=== PATIENT | male | born 1990 | race Caucasian/White ===

== ENCOUNTER → 2018-10-03 16:04 | Emergency (ER) | payer OTHER ==
[~2018-10-03 16:04] MED LIST: Lidocaine PATCH 5%* 1 PATCH TRANSDERM ONE; Lidocaine Patch REMOVE* 1 NOTE MISC PATCH OFF SCH; Lidocaine Patch REMOVE* 1 NOTE MISC SCH
--- NOTE | 2018-10-03 17:15 | ED ---
Shortness of Breath - HPI Summary HPI Summary: 28-year-old male presents with right rib pain for the past couple day. He states he got elbowed in the rib on . He states it hurts to take a deep breath. He states it is difficult to find a comfortable position. He states taking ibuprofen for pain which has been helping. Denies any history of asthma or COPD. He is nonsmoker. He's never had this pain before. pain is on the lateral aspect of left ribs. He denies any bowel pain. No other injury. Has no medical conditions. - History of Current Complaint Chief Complaint: EDChestWallPain - Allergy/Home Medications Allergies/Adverse Reactions: Allergies Allergy/AdvReac Type Severity Reaction Status Date / Time No Known Allergies Allergy Verified 10/03/18 16:10 PMH/Surg Hx/FS Hx/Imm Hx Endocrine/Hematology History: Denies: Hx Anticoagulant Therapy Respiratory History: Denies: Hx Asthma Infectious Disease History: No Infectious Disease History: Denies: Traveled Outside the [place] in Last 30 Days - Family History Known Family History: Positive: Non-Contributory - Social History Substance Use Type: Reports: None Smoking Status (MU): Never Smoked Tobacco Review of Systems Negative: Fever Positive: Chest Pain Positive: Shortness Of Breath. Negative: Cough Negative: Abdominal Pain All Other Systems Reviewed And Are Negative: Yes Physical Exam Triage Information Reviewed: Yes Vital Signs On Initial Exam: Initial Vitals Temp Pulse Resp BP Pulse Ox 98.6 F 74 16 147/74 98 10/03/18 16:08 10/03/18 16:08 10/03/18 16:08 10/03/18 16:08 10/03/18 16:08 Vital Signs Reviewed: Yes Appearance: Positive: Well-Appearing Skin: Positive: Warm, Dry Head/Face: Positive: Normal Head/Face Inspection Eyes: Positive: Normal, Conjunctiva Clear ENT: Positive: Pharynx normal Respiratory/Lung Sounds: Positive: Clear to Auscultation, Breath Sounds Present , Other - tenderness over lateral ribs 7-10 Cardiovascular: Positive: Normal, RRR Musculoskeletal: Positive: Normal Neurological: Positive: Normal Psychiatric: Positive: Normal Diagnostics - Vital Signs Vital Signs Temp Pulse Resp BP Pulse Ox 10/03/18 16:08 98.6 F 74 16 147/74 98 - Laboratory Lab Statement: Any lab studies that have been ordered have been reviewed, and results considered in the medical decision making process. - Radiology rib Radiology Interpretation Completed By: Radiologist Summary of Radiographic Findings: IMPRESSION: Questionable minimally displaced fracture involving the lateral left seventh rib. Course/Dx - Course Course Of Treatment: 28-year-old male presents with right rib pain for the past couple day. He states he got elbowed in the rib on . He states it hurts to take a deep breath. He states it is difficult to find a comfortable position. He states taking ibuprofen for pain which has been helping. Denies any history of asthma or COPD. He is nonsmoker. He's never had this pain before. pain is on the lateral aspect of left ribs. He denies any bowel pain. No other injury. Has no medical conditions. On exam tenderness over ribs 8 through 10 on the left lateral side. lungs CTA. X-ray shows a possible fracture of 7th rib. Explained need to take deep breaths throughout the day. told if develop any signs of pneumonia to return to ED. Patient understands agrees plan. - Diagnoses Differential Diagnosis/HQI/PQRI: Positive: Pneumonia, Pneumothorax, Other - rib fracture Provider Diagnoses: Rib fracture Discharge - Sign-Out/Discharge Documenting (check all that apply): Patient Departure Patient Received Moderate/Deep Sedation with Procedure: No - Discharge Plan Condition: Good Disposition: HOME Patient Education Materials: Rib Fracture (ED) Referrals: No Primary Care Phys,NOPCP [Primary Care Provider] - Additional Instructions: Take deep breath throughout the day Take Ibuprofen or Tylenol for pain every 6 hours Return to ED if develop new productive cough, fever, or any new or worsening symptoms - Billing Disposition and Condition Condition: GOOD Disposition: Home
[2018-10-03 20:28] VITALS: BP 139/71
== END | disposition home or self-care (01) ==
LOC: ED 16:04
DX: S29.9XXA Unspecified injury of thorax, initial encounter (principal); W50.0XXA Accidental hit or strike by another person, initial encounter; Y92.9 Unspecified place or not applicable; R07.81 Pleurodynia; R06.02 Shortness of breath
CPT/HCPCS: 99282